=== PATIENT | male | born 1985 | race Two or more races ===

== ENCOUNTER 2018-07-05 06:25 | Emergency (ER) | payer OTHER ==
[~2018-07-05] VITALS: Ht 182.9 cm; Wt 81.4 kg
[2018-07-05 06:33] VITALS: Ht 182.9 cm; Wt 81.4 kg
[2018-07-05 07:15] VITALS: BP 139/86
== END 2018-07-05 07:15 | disposition home or self-care (01) ==
LOC: ED 06:25
DX: R07.89 Other chest pain (principal)
CPT/HCPCS: J1885